=== PATIENT | male | born 1995 | race Caucasian/White ===

== ENCOUNTER 2020-09-20 17:37 | Emergency (ER) | payer SELFPAY ==
[~2020-09-20] VITALS: Ht 182.9 cm; Wt 113.4 kg
[~2020-09-20 17:37] MED LIST: ALBU90OI6 INH; CEPH500 PO; IBUP600 PO; Naprosyn500 MG PO; PRED20 PO; RXPROM25 PO
[2020-09-20] MEDS ORDERED: Cleocin HCl300 MG PO (18:03)
== END 2020-09-20 18:13 | disposition home or self-care (01) ==
LOC: ER 17:37
DX: K04.7 Periapical abscess without sinus (principal); F17.200 Nicotine dependence, unspecified, uncomplicated
CPT/HCPCS: 41800; 99282

== ENCOUNTER 2021-05-05 18:46 | Emergency (ER) | payer SELFPAY ==
[~2021-05-05] VITALS: Ht 175.3 cm; Wt 74.8 kg
[~2021-05-05 18:46] MED LIST changes: +Cleocin HCl300 MG PO
[2021-05-05 19:09] LABS: BASOPHILS ABSOLUTE AUTO 0.06 K/mm3 (0.00-0.23); BASOPHILS PERCENT AUTO 1 % (0-2); EOSINOPHILS ABSOLUTE AUTO 0.11 K/mm3 (0.00-0.68); EOSINOPHILS PERCENT AUTO 1 % (0-6); Hematocrit 42.9 % (37.0-53.0); Hemoglobin 15.4 g/dL (13.5-17.5); IMMATURE GRAN ABSOLUTE AUTO 0.02 K/mm3 (0.00-0.10); IMMATURE GRAN PERCENT AUTO 0 % (0-1); LYMPHOCYTES PERCENT AUTO 21 % (21-46); MONOCYTES ABSOLUTE AUTO 0.49 K/mm3 (0.16-1.47); MONOCYTES PERCENT AUTO 6 % (4-13); Mean Corpuscular HGB 31.2 pg (26.0-34.0); Mean Corpuscular HGB Conc 35.9 g/dL (31.5-36.5); Mean Corpuscular Volume 87 fL (80-100); Mean Platelet Volume 9.9 fL (9.1-12.4); NEUTROPHILS PERCENT AUTO 71 % (41-73); Platelet Count 307 K/mm3 (150-400); RDW Coefficient Variation 12.1 % (11.7-14.2); RDW Standard Deviation 38.9 fL (35.1-46.3); Red Blood Cell Count 4.93 M/mm3 (4.30-5.90); White Blood Cell Count 7.78 K/mm3 (4.00-11.30)
[2021-05-05 19:38] LABS: Alanine Aminotransfer (ALT/SGP 37 U/L (12-78); Albumin, Blood 4.2 g/dL (3.4-5.0); Albumin/Globulin Ratio 1.3 (0.8-1.8); Alk Phos 93 U/L (50-136); Anion Gap 5 mmol/L (6-16); Aspartate Aminotrans (AST/SGOT 20 U/L (12-37); Bilirubin, Total 0.3 mg/dL (0.1-1.0); Blood Urea Nitrogen 12 mg/dL (8-24); Bun/Creatinine Ratio 12.1 (12.0-20.0); CO2, Blood 26 mmol/L (21-32); Calcium, Blood 9.2 mg/dL (8.5-10.1); Chloride, Blood 109 mmol/L (98-108); Creatinine, Blood 0.99 mg/dL (0.60-1.20); Globulin, Blood 3.3 g/dL (2.2-4.0); Glomerular Filtration Rate >60 (60-); Glucose, Blood 154 mg/dL (70-99); Potassium, Blood 3.3 mmol/L (3.5-5.5); Sodium, Blood 140 mmol/L (136-145); Total Protein, Blood 7.5 g/dL (6.4-8.2)
[2021-05-05] MEDS ORDERED: HYDR1TAB94 PO (20:10)
[2021-05-05] MEDS ORDERED: AMOCLA875 PO (22:39)
== END 2021-05-05 20:25 | disposition home or self-care (01) ==
LOC: ER 18:46
PROVIDERS: Emergency Medicine
DX: S71.142A Puncture wound with foreign body, left thigh, initial encounter (principal); F17.200 Nicotine dependence, unspecified, uncomplicated; W34.00XA Accidental discharge from unspecified firearms or gun, initial encounter
CPT/HCPCS: 73562-LT; 80053; 85025; 96365; 96375; 99285-25; A9270; J0690; J3010; J7120

== ENCOUNTER 2023-04-13 02:08 | Emergency (ER) | payer SELFPAY ==
[~2023-04-13] VITALS: Ht 180.3 cm; Wt 108.9 kg
[~2023-04-13 02:08] MED LIST changes: +AMOCLA875 PO; +HYDR1TAB94 PO
[2023-04-13] MEDS ORDERED: SULTRIDS PO (06:25)
[2023-04-13 06:39] VITALS: BP 125/85
== END 2023-04-13 06:38 | disposition home or self-care (01) ==
LOC: ER 02:08
DX: L02.413 Cutaneous abscess of right upper limb (principal); L03.113 Cellulitis of right upper limb; F17.210 Nicotine dependence, cigarettes, uncomplicated
CPT/HCPCS: 99282; A9270